=== PATIENT | male | born 2000 | race Caucasian/White ===

== ENCOUNTER 2023-02-03 21:04 | Emergency (ER) | payer OTHER, SELFPAY ==
[2023-02-03 22:03] LABS: SARS-CoV-2 Antigen Rapid Res Negative (Negative)
--- NOTE | 2023-02-03 22:31 | RAD REPORT ---
EXAM DESCRIPTION: RAD - Chest Pa And Lat (2 Views) - 02/03/2023 10:13 pm CLINICAL HISTORY: Cough;Pain COMPARISON: No comparisons TECHNIQUE: PA and lateral views of the chest were obtained. FINDINGS: The lungs are clear. Heart size is normal and central vasculature is within normal limits. No pleural effusion or pneumothorax seen. No acute bony finding noted. IMPRESSION: No acute cardiopulmonary process.
--- NOTE | 2023-02-03 22:34 | EDPHYS ---
Physician Documentation [facility] Name: Edu Whyte Age: 22 yrs Sex: Male : 2000 Arrival Date: 02/03/2023 Time: 21:04 Bed 12 Private MD: ED Physician Scott Brewster HPI: 02/03 21:40 This 22 yrs old Male presents to ER via Ambulatory with complaints of Flu Symptoms, cp Chest Congestion, fatigue. 21:40 The patient or guardian reports cough, that is intermittent, with productive sputum. cp 21:40 Onset: The symptoms/episode began/occurred this past Thursday. Associated signs and cp symptoms: Pertinent positives: chest pain, with cough, sore throat, Pertinent negatives: diarrhea, vomiting. Severity of symptoms: in the emergency department the symptoms are unchanged despite home interventions. Historical: - Allergies: 21:15 PENICILLINS; pf1 - Home Meds: 21:15 None [Active]; pf1 - PMHx: 21:15 None; pf1 - PSHx: 21:15 None; pf1 - Immunization history:: Client reports receiving the 2nd dose of the Covid vaccine, Flu vaccine is not up to date. - Social history:: Smoking status: Patient denies any tobacco usage or history of. ROS: 21:45 Constitutional: Positive for body aches, Negative for fever, poor PO intake, cp 21:45 Cardiovascular: Positive for chest pain, with cough, Negative for palpitations, cp 21:45 Respiratory: Positive for cough, Negative for wheezing, 21:45 Eyes: Negative for injury, pain, redness, and discharge, cp 21:45 ENT: Positive for sore throat, Negative for drainage from ear(s), ear pain, difficulty cp swallowing, difficulty handling secretions, 21:45 Abdomen/GI: Negative for abdominal pain, vomiting, diarrhea, constipation, 21:45 Neuro: Negative for altered mental status, dizziness, headache, weakness, 21:45 All other systems are negative, Exam: 21:50 Constitutional: The patient appears in no acute distress, alert, awake, non-toxic, well cp developed, well nourished, 21:50 Head/Face: Normocephalic, atraumatic. cp 21:50 Eyes: Periorbital structures: appear normal, Conjunctiva: normal, no exudate, no injection, Lids and lashes: appear normal, bilaterally, 21:50 ENT: External ear(s): are unremarkable, Ear canal(s): are normal, clear, TM's: bulging, is not appreciated, bilaterally, dullness, bilaterally, erythema, is not appreciated, bilaterally, Nose: is normal, Mouth: Lips: moist, Oral mucosa: moist, Posterior pharynx: Airway: no evidence of obstruction, patent, Tonsils: with erythema, no exudate, erythema, that is mild, exudate, is not appreciated, 21:50 Neck: ROM/movement: is normal, is supple, without pain, no range of motions limitations, no meningismus, no nuchal rigidity, 21:50 Chest/axilla: Inspection: normal, 21:50 Cardiovascular: Rate: normal, Rhythm: regular, 21:50 Respiratory: the patient does not display signs of respiratory distress, Respirations: normal, no use of accessory muscles, no retractions, labored breathing, is not present, Breath sounds: decreased breath sounds, are not appreciated, stridor, is not appreciated, + upper airway congestion. wheezing: is not appreciated, 21:50 Abdomen/GI: Inspection: abdomen appears normal, Palpation: abdomen is soft and non-tender, in all quadrants, 21:50 Back: pain, is absent, ROM is normal, 21:50 Skin: no rash present. Vital Signs: 21:13 BP 146 / 67; Pulse 74; Resp 16; Temp 98.1; Pulse Ox 100% ; Weight 83.91 kg; Height 6 pf1 ft. 0 in. ; Pain 7/10; 22:39 BP 133 / 68; Pulse 78; Resp 16; Temp 98; Pulse Ox 99% on R/A; pf1 21:13 Body Mass Index 25.09 (83.91 kg, 182.88 cm) pf1 21:13 Pain Scale: Adult pf1 MDM: 21:19 Patient medically screened. cp 22:31 Data reviewed: vital signs, nurses notes, lab test result(s), radiologic studies, plain cp films. 22:31 Differential diagnosis: bronchitis, flu, URI, pneumonia, strep throat. Counseling: I cp had a detailed discussion with the patient and/or guardian regarding the historical points, exam findings, and any diagnostic results supporting the discharge/admit diagnosis, lab results, to return to the emergency department if symptoms worsen or persist or if there are any questions or concerns that arise at home. 02/03 21:34 Order name: Strep 02/03 22:21 Interpretation: Reviewed. 02/03 21:34 Order name: Influenza Screen (a \T\ B); Complete Time: 22:20 02/03 22:21 Interpretation: Reviewed. 02/03 21:34 Order name: SARS-COV-2 Antigen Rapid; Complete Time: 22:20 02/03 22:21 Interpretation: Reviewed. 02/03 22:36 Order name: Throat Culture EDOH 02/03 21:34 Order name: XRAY Chest Pa And Lat (2 Views); Complete Time: 22:34 02/03 22:34 Interpretation: Report reviewed. cp Administered Medications: No medications were administered Disposition Summary: 02/03/23 22:32 Discharge Ordered Notes: Location: Home cp Problem: new cp Symptoms: have improved cp Condition: Stable cp Diagnosis - Acute pharyngitis, unspecified cp - Cough cp Followup: cp - With: Private Physician - When: 2 - 3 days - Reason: Worsening of condition Discharge Instructions: - Discharge Summary Sheet cp - Sore Throat cp - Cough, Adult cp - Form - Excuse from Work, School, or Physical Activity cp Forms: - Medication Reconciliation Form cp - Thank You Letter cp - Antibiotic Education cp - Prescription Opioid Use cp - Patient Portal Instructions cp - Leadership Thank You Letter cp Prescriptions: - Bromfed DM 2-30-10 mg/5 mL Oral syrup - administer 10 milliliter ORAL route every 6 hours as needed for cold symptoms; cp 180 milliliter; Refills: 0, Product Selection Permitted Addendum: 02/05/2023 04:04 Co-signature as Attending Physician, Scott Brewster MD I agree with the assessment s p4 and plan of care. I reviewed the patient's care provided by the Advanced Practice Provider and agree with the diagnosis and treatment plan. Signatures: Dispatcher [employer] EDOH Mata Marshall PA PA cp Ada Valentin, RN RN pf1 Scott Brewster MD MD sp4 Corrections: (The following items were deleted from the chart) 02/03 21:16 21:15 Allergies: No Known Allergies; pf1 pf1
--- NOTE | 2023-02-03 22:34 | ER ---
Nurse's Notes [facility] Name: Edu Whyte Age: 22 yrs Sex: Male : 2000 Arrival Date: 02/03/2023 Time: 21:04 Bed 12 Private MD: Diagnosis: Acute pharyngitis, unspecified;Cough Presentation: 02/03 21:13 Chief complaint: Patient states: Having body aches, chest congestion, cough and fatigue pf1 since last Thursday. Now when I cough really bad my chest hurts. Coronavirus screen: Vaccine status: Patient reports receiving the 2nd dose of the covid vaccine. [place] Client denies travel out of the [place] in the last 14 days. congestion, cough unrelated to allergies, fatigue, muscle pain, sore throat, Client presents with at least one sign or symptom that may indicate coronavirus-19. Ebola Screen: Patient negative for fever greater than or equal to 101.5 degrees Fahrenheit, and additional compatible Ebola Virus Disease symptoms Patient denies exposure to infectious person. Patient denies travel to an Ebola-affected area in the 21 days before illness onset. No symptoms or risks identified at this time. Initial Sepsis Screen: Does the patient meet any 2 criteria? No. Patient's initial sepsis screen is negative. Does the patient have a suspected source of infection? No. Patient's initial sepsis screen is negative. Risk Assessment: Do you want to hurt yourself or someone else? Patient reports no desire to harm self or others. Onset of symptoms was January 30, 2023. 21:13 Method Of Arrival: Ambulatory pf1 21:13 Acuity: TERENCE 4 pf1 Triage Assessment: 21:15 General: Appears in no apparent distress. comfortable, ill, Behavior is calm, pf1 cooperative, appropriate for age. Pain: Complains of pain in Throat and chest Pain does not radiate. Pain currently is 7 out of 10 on a pain scale. Quality of pain is described as pressure, stinging, Pain began 2-3 days ago. Is intermittent, Aggravated by coughing. EENT: Reports pain when swallowing. Neuro: Level of Consciousness is awake, alert, obeys commands, Oriented to person, place, time, situation, Appropriate for age [place] are. Cardiovascular: Chest pain is described as mild, is aggravated by coughing. Respiratory: Reports cough that is Airway is patent Respiratory effort is even, unlabored, Respiratory pattern is regular, symmetrical, the patient has mild shortness of breath. GI: No deficits noted. No signs and/or symptoms were reported involving the gastrointestinal system. : No deficits noted. No signs and/or symptoms were reported regarding the genitourinary system. Derm: No deficits noted. No signs and/or symptoms reported regarding the dermatologic system. Musculoskeletal: Reports body aches. Historical: - Allergies: 21:15 PENICILLINS; pf1 - Home Meds: 21:15 None [Active]; pf1 - PMHx: 21:15 None; pf1 - PSHx: 21:15 None; pf1 - Immunization history:: Client reports receiving the 2nd dose of the Covid vaccine, Flu vaccine is not up to date. - Social history:: Smoking status: Patient denies any tobacco usage or history of. Screenin:18 [facility] ED Fall Risk Assessment (Adult) History of falling in the last 3 months, pf1 including since admission No falls in past 3 months (0 pts) Confusion or Disorientation No (0 pts) Intoxicated or Sedated No (0 pts) Impaired Gait No (0 pts) Mobility Assist Device Used No (0 pt) Altered Elimination No (0 pt) Score/Fall Risk Level 0 - 2 = Low Risk Oriented to surroundings, Maintained a safe environment, Educated pt \T\ family on fall prevention, incl call for assistance when getting out of bed. Abuse screen: Denies threats or abuse. Nutritional screening: No deficits noted. Tuberculosis screening: No symptoms or risk factors identified. Assessment: 21:45 Reassessment: Patient appears in no apparent distress at this time. Patient and/or pf1 family updated on plan of care and expected duration. Pain level reassessed. Patient is alert, oriented x 3, equal unlabored respirations, skin warm/dry/pink. 22:30 Reassessment: Patient appears in no apparent distress at this time. Patient and/or pf1 family updated on plan of care and expected duration. Pain level reassessed. Patient is alert, oriented x 3, equal unlabored respirations, skin warm/dry/pink. Vital Signs: 21:13 BP 146 / 67; Pulse 74; Resp 16; Temp 98.1; Pulse Ox 100% ; Weight 83.91 kg; Height 6 pf1 ft. 0 in. ; Pain 7/10; 22:39 BP 133 / 68; Pulse 78; Resp 16; Temp 98; Pulse Ox 99% on R/A; pf1 21:13 Body Mass Index 25.09 (83.91 kg, 182.88 cm) pf1 21:13 Pain Scale: Adult pf1 ED Course: 21:09 Patient arrived in ED. gm2 21:13 Mata Marshall PA is PHCP. cp 21:13 Scott Brewster MD is Attending Physician. cp 21:15 Triage completed. pf1 21:15 Arm band placed on right wrist. pf1 21:44 SARS-COV-2 Antigen Rapid Sent. pf1 21:44 Influenza Screen (a \T\ B) Sent. pf1 21:44 Strep Sent. pf1 21:45 Patient has correct armband on for positive identification. Bed in low position. Call pf1 light in reach. 22:15 XRAY Chest Pa And Lat (2 Views) In Process Unspecified. EDMS 22:40 Provided Education on: prescription. pf1 22:40 No provider procedures requiring assistance completed. Patient did not have IV access pf1 during this emergency room visit. Administered Medications: No medications were administered Medication: 21:18 VIS not applicable for this client. pf1 Outcome: 22:32 Discharge ordered by MD. cp 22:39 Discharged to home ambulatory, pf1 22:39 Condition: improved 22:39 Discharge instructions given to patient, Instructed on discharge instructions, follow up and referral plans. Demonstrated understanding of instructions, follow-up care, medications, Prescriptions given X 1, 22:40 Patient left the ED. pf1 Signatures: Dispatcher [employer] EDPA Mata Marshall PA PA cp Ada Valentin, RN RN pf1 Jackie Rios gm2 Corrections: (The following items were deleted from the chart) 21:16 21:15 Allergies: No Known Allergies; pf1 pf1
[2023-02-03 22:59] VITALS: BP 133/68; TEMP 98; O2SAT 99
== END 2023-02-03 22:40 | disposition home or self-care (01) ==
LOC: ER 21:04
DX: J02.9 Acute pharyngitis, unspecified (principal); R05.9 Cough, unspecified; Z11.52 Encounter for screening for COVID-19; Z88.0 Allergy status to penicillin
CPT/HCPCS: 36415; 71046; 87070; 87081; 87804; 87811; 99283

== ENCOUNTER → 2023-04-27 | Emergency (ER) | payer SELFPAY ==
[~2023-04-27] MED LIST: IBUPROFEN 200 MG TAB PO ONE
--- NOTE | 2023-04-27 10:59 | ER ---
Nurse's Notes [facility] Name: Edu Whyte Age: 22 yrs Sex: Male : 2000 Arrival Date: 04/27/2023 Time: 10:10 Bed 15 Private MD: Diagnosis: Strain of muscle and tendon of front wall of thorax;Strain of muscle and tendon of back wall of thorax;Unspecified symptoms and signs involving the musculoskeletal system Presentation: 04/27 10:22 Chief complaint: Patient states: reports right side pain that radiates to arm and cp4 increases with movement. Coronavirus screen: Vaccine status: Patient reports receiving the 2nd dose of the covid vaccine. Client denies travel out of the [place] in the last 14 days. At this time, the client does not indicate any symptoms associated with coronavirus-19. Ebola Screen: Patient negative for fever greater than or equal to 101.5 degrees Fahrenheit, and additional compatible Ebola Virus Disease symptoms Patient denies exposure to infectious person. Patient denies travel to an Ebola-affected area in the 21 days before illness onset. No symptoms or risks identified at this time. Initial Sepsis Screen: Does the patient meet any 2 criteria? No. Patient's initial sepsis screen is negative. Does the patient have a suspected source of infection? No. Patient's initial sepsis screen is negative. Risk Assessment: Do you want to hurt yourself or someone else? Patient reports no desire to harm self or others. Onset of symptoms was April 27, 2023. 10:22 Method Of Arrival: Ambulatory cp4 10:22 Acuity: TERENCE 4 cp4 Triage Assessment: 10:24 General: Appears in no apparent distress. Behavior is calm, cooperative, appropriate cp4 for age. Pain: Complains of pain in right lateral anterior chest and right lateral posterior chest. Cardiovascular: No deficits noted. Historical: - Allergies: 10:24 PENICILLINS; cp4 - PMHx: 10:24 Asthma; cp4 - Immunization history:: Adult Immunizations up to date. - Social history:: Smoking status: Patient denies any tobacco usage or history of. Screenin:26 [facility] ED Fall Risk Assessment (Adult) History of falling in the last 3 months, cp4 including since admission No falls in past 3 months (0 pts) Confusion or Disorientation No (0 pts) Intoxicated or Sedated No (0 pts) Impaired Gait No (0 pts) Mobility Assist Device Used No (0 pt) Altered Elimination No (0 pt) Score/Fall Risk Level 0 - 2 = Low Risk Oriented to surroundings, Maintained a safe environment, Educated pt \T\ family on fall prevention, incl call for assistance when getting out of bed, Assessed \T\ reinforced patient's understanding of fall precautions, Provided non-skid footwear, Hourly rounding (assess needs \T\ fall precautionary measures) done. Abuse screen: Denies threats or abuse. Nutritional screening: No deficits noted. Tuberculosis screening: No symptoms or risk factors identified. Assessment: 10:26 Pain: Pain does not radiate. Pain radiates to right arm Pain began gradually. cp4 Vital Signs: 10:22 BP 125 / 93; Pulse 83; Resp 18; Temp 98; Pulse Ox 100% ; Weight 79.38 kg; Height 6 ft. cp4 0 in. ; 10:22 Body Mass Index 23.73 (79.38 kg, 182.88 cm) cp4 ED Course: 10:12 Patient arrived in ED. rg4 10:12 Mata Chavarria MD is Attending Physician. elliot 10:22 Effie Abrams is Primary Nurse. cp4 10:24 Triage completed. cp4 10:24 Arm band placed on right wrist. Patient placed in waiting room. cp4 10:26 Bed in low position. Call light in reach. Side rails up X 1. Client placed on cp4 continuous cardiac and pulse oximetry monitoring. NIBP monitoring applied. 10:26 No provider procedures requiring assistance completed. Patient maintains SpO2 cp4 saturation greater than 95% on room air. 10:41 Chest Pa And Lat (2 Views) XRAY In Process Unspecified. EDMS 11:31 Provided Education on: muscle strain. cp4 11:31 Patient did not have IV access during this emergency room visit. cp4 Administered Medications: 10:44 Drug: Ibuprofen PO 600 mg PO once Route: PO; cp4 11:30 Follow up: Response: No adverse reaction cp4 Medication: 10:26 VIS not applicable for this client. cp4 Outcome: 10:59 Discharge ordered by . elliot 11:31 Discharged to home ambulatory, cp4 11:31 Condition: stable 11:31 Discharge instructions given to patient, Instructed on discharge instructions, follow up and referral plans. medication usage, Demonstrated understanding of instructions, follow-up care, medications, Prescriptions given X 2, 11:32 Patient left the ED. cp4 Signatures: Dispatcher [employer] EDMata Fabian MD MD cha Garcia, Rubi rg4 Effie Abrams cp4
--- NOTE | 2023-04-27 10:59 | RAD REPORT ---
EXAM DESCRIPTION: Jose Duenas And Marvin (2 Views)04/27/2023 10:40 am CLINICAL HISTORY: Cough COMPARISON: January 2023 FINDINGS: The lungs appear clear of acute infiltrate. The heart is normal size IMPRESSION: No acute abnormalities displayed
--- NOTE | 2023-04-27 10:59 | EDPHYS ---
Physician Documentation [facility] Name: Edu Whyte Age: 22 yrs Sex: Male : 2000 Arrival Date: 04/27/2023 Time: 10:10 Bed 15 Private MD: PHYLLIS Physician Mata Chavarria HPI: 04/27 10:24 This 22 yrs old Male presents to ER via Unassigned with complaints of Arm elliot Pain, Chest Pain. 10:24 The patient or guardian complains of pain. The complaints affect the anterior aspect of elliot right shoulder and posterior aspect of right shoulder. Context: The problem was sustained at an unknown location, resulted from lifting or pulling, a heavy object. Onset: The symptoms/episode began/occurred yesterday. Treatment prior to arrival includes: no previous treatment. Modifying factors: The symptoms are alleviated by nothing. the symptoms are aggravated by nothing. Associated signs and symptoms: The patient has no apparent associated signs or symptoms. Historical: - Allergies: 10:24 PENICILLINS; cp4 - PMHx: 10:24 Asthma; cp4 - Immunization history:: Adult Immunizations up to date. - Social history:: Smoking status: Patient denies any tobacco usage or history of. ROS: 10:26 Constitutional: Negative for fever, chills, and weight loss, Eyes: Negative for injury, elliot pain, redness, and discharge, ENT: Negative for injury, pain, and discharge, Neck: Negative for injury, pain, and swelling, Cardiovascular: Negative for chest pain, palpitations, and edema, Respiratory: Negative for shortness of breath, cough, wheezing, and pleuritic chest pain, Abdomen/GI: Negative for abdominal pain, nausea, vomiting, diarrhea, and constipation, Back: Negative for injury and pain, : Negative for injury, bleeding, discharge, and swelling, MS/Extremity: Negative for injury and deformity, Skin: Negative for injury, rash, and discoloration, Neuro: Negative for headache, weakness, numbness, tingling, and seizure, Psych: Negative for depression, anxiety, suicide ideation, homicidal ideation, and hallucinations, Allergy/Immunology: Negative for hives, rash, and allergies, Endocrine: Negative for neck swelling, polydipsia, polyuria, polyphagia, and marked weight changes, Hematologic/Lymphatic: Negative for swollen nodes, abnormal bleeding, and unusual bruising, Exam: 10:26 Constitutional: This is a well developed, well nourished patient who is awake, alert, elliot and in no acute distress. Head/Face: Normocephalic, atraumatic. Eyes: Pupils equal round and reactive to light, extra-ocular motions intact. Lids and lashes normal. Conjunctiva and sclera are non-icteric and not injected. Cornea within normal limits. Periorbital areas with no swelling, redness, or edema. ENT: Nares patent. No nasal discharge, no septal abnormalities noted. Tympanic membranes are normal and external auditory canals are clear. Oropharynx with no redness, swelling, or masses, exudates, or evidence of obstruction, uvula midline. Mucous membranes moist. Neck: Trachea midline, no thyromegaly or masses palpated, and no cervical lymphadenopathy. Supple, full range of motion without nuchal rigidity, or vertebral point tenderness. No Meningismus. Cardiovascular: Regular rate and rhythm with a normal S1 and S2. No gallops, murmurs, or rubs. Normal PMI, no JVD. No pulse deficits. Respiratory: Lungs have equal breath sounds bilaterally, clear to auscultation and percussion. No rales, rhonchi or wheezes noted. No increased work of breathing, no retractions or nasal flaring. Abdomen/GI: Soft, non-tender, with normal bowel sounds. No distension or tympany. No guarding or rebound. No evidence of tenderness throughout. Back: No spinal tenderness. No costovertebral tenderness. Full range of motion. Male : Normal genitalia with no discharge or lesions. Skin: Warm, dry with normal turgor. Normal color with no rashes, no lesions, and no evidence of cellulitis. MS/ Extremity: Pulses equal, no cyanosis. Neurovascular intact. Full, normal range of motion. Neuro: Awake and alert, GCS 15, oriented to person, place, time, and situation. Cranial nerves II-XII grossly intact. Motor strength 5/5 in all extremities. Sensory grossly intact. Cerebellar exam normal. Normal gait. Psych: Awake, alert, with orientation to person, place and time. Behavior, mood, and affect are within normal limits. 10:26 Chest/axilla: Inspection: normal, no acute changes, Palpation: crepitus, is not appreciated, tenderness, that is mild, of the right clavicle, anterior aspect of right upper chest, right lateral anterior chest and right lateral posterior chest, Axilla: are normal, Lymph nodes: lymphadenopathy is not appreciated, Vital Signs: 10:22 BP 125 / 93; Pulse 83; Resp 18; Temp 98; Pulse Ox 100% ; Weight 79.38 kg; Height 6 ft. cp4 0 in. ; 10:22 Body Mass Index 23.73 (79.38 kg, 182.88 cm) cp4 MDM: 10:13 Patient medically screened. elliot 10:27 Differential diagnosis: closed fracture, contusion, abrasion, tendonitis, Blunt Chest elliot Trauma Chest Wall Contusion Chest Wall Injury. Data reviewed: vital signs, nurses notes, radiologic studies, plain films. Consideration of Admission/Observation Escalation of care including admission/observation considered. I considered the following discharge prescriptions or medication management in the emergency department Medications were administered in the Emergency Department. See MAR. Independent interpretation of the following test(s) in the Emergency Department X-Ray: My interpretation is cxr , nad. Test considered but Not performed: Labs: no labs. Historians other than the Patient: pt well informed. Care significantly affected by the following chronic conditions: asthma, right clavicular fx. 04/27 10:21 Order name: Chest Pa And Lat (2 Views) XRAY elliot Administered Medications: 10:44 Drug: Ibuprofen PO 600 mg PO once Route: PO; cp4 11:30 Follow up: Response: No adverse reaction cp4 Disposition Summary: 04/27/23 10:59 Discharge Ordered Notes: Location: Home elliot Problem: new elliot Symptoms: have improved elliot Condition: Stable elliot Diagnosis - Strain of muscle and tendon of front wall of thorax elliot - Strain of muscle and tendon of back wall of thorax elliot - Unspecified symptoms and signs involving the musculoskeletal system elliot Followup: elliot - With: Private Physician - When: 2 - 3 days - Reason: Recheck today's complaints, Continuance of care, Re-evaluation by your physician Discharge Instructions: - Discharge Summary Sheet elliot - Chest Wall Pain elliot - Musculoskeletal Pain elliot - Muscle Pain, Adult elliot - Chest Wall Pain, [id number] elliot Forms: - Medication Reconciliation Form elliot - Thank You Letter elliot - Antibiotic Education elliot - Prescription Opioid Use elliot - Patient Portal Instructions elliot - Leadership Thank You Letter elliot - Work release form cp4 Prescriptions: - Ibuprofen 600 mg Oral Tablet - take 1 tablet ORAL route every 6 hours As needed take with food; 30 tablet; [facility] Refills: 0, Product Selection Permitted - Cyclobenzaprine 5 mg Oral Tablet - take 1 tablet ORAL route 3 times per day As needed; 15 tablet; Refills: 0, [facility] Product Selection Permitted Signatures: Dispatcher [employer] Mata Staton, Effie Disla MD, cha Logan
[2023-04-27 21:24] VITALS: BP 125/93; TEMP 98; O2SAT 100
== END ==
LOC: ER 10:10
DX: S29.011A Strain of muscle and tendon of front wall of thorax, initial encounter (principal); S29.012A Strain of muscle and tendon of back wall of thorax, initial encounter
CPT/HCPCS: 71046

== ENCOUNTER → 2023-05-11 | Emergency (ER) | payer SELFPAY ==
[~2023-05-11] MED LIST changes: -IBUPROFEN 200 MG TAB PO ONE; +dexAMETHasone 10 MG/ML VIAL ONE
--- OUTSIDE RECORDS SUMMARY | 2023-05-11 21:39 | XMS REPORT | Continuity of Care Document ---
Author Name Unknown Address [address] [place] [address] [facility] thconnect Address [address] [place] [address] Care Team Providers Care Leaf Tier Name Role Phone Rubén Grimm Primary Care Physician [phone] Joey ARCEO Attending Clinician Unavailable Joey Veliz Attending Clinician [phone] Allergies, Adverse Reactions, Alerts Allergy Name Allergy Type Status Severity Reaction(s) Onset Date Inactive Date Treating Clinician Comments Source NO KNOWN ALLERGIE S Drug Class Active [facility] Social History Social Habit Start Date Stop Date Quantity Comments Source History of tobacco use Passive smoker [facility] Exposure to SARS-CoV-2 (event) 2022-06-24 00:00:00 2022-07-04 15:03:00 Not sure [facility] Alcohol intake 2022-07-04 00:00:00 2022-07-04 00:00:00 [facility] Sex Assigned At 2000 00:00:00 2000 00[birth year]00 [facility] Smoking Status Start Date Stop Date Source Never smoked tobacco [facility] Medications Ordered Medication Name Filled Medication Name Start Date Stop Date Current Medication? Ordering Clinician Indication Dosage Frequency Signature (SIG) Comments Components Source ondansetron (ZOFRAN-ODT ) disintegrat ing tablet 4 mg 07-04 21:45: 00 07-04 20:46 :00 No 4mg 4 mg, Oral, ONCE, 1 dose, On Thu07/04/22 at 1645, Routine [facility] ondansetron 4 mg disintegrat ing tablet 07-04 00:00: 00 Yes [id number] 4mg Take 1 tablet by mouth every 8 (eight) hours as needed for Nausea and Vomiting (N/V). [facility] NAPROXEN (NAPROSYN ORAL) 08-25 08:23: 49 Yes Take by mouth. [facility] CYCLOBENZAP RINE HCL (FLEXERIL ORAL) 08-25 08:23: 49 Yes Take by mouth. [facility] Vital Signs Vital Name Observation Time Observation Value Comments S our Systolic blood pressure 2022-07-04 20:05:00 150 mm[Hg] [facility] Diastolic blood pressure 2022-07-04 20:05:00 86 mm[Hg] [facility] Heart rate 2022-07-04 20:05:00 91 /min [facility] Body temperature 2022-07-04 20:05:00 37.11 Josseline [facility] Respiratory rate 2022-07-04 20:05:00 16 /min [facility] Body weight 2022-07-04 20:05:00 81.647 kg [facility] Oxygen saturation in Arterial blood by Pulse oximetry 2022-07-04 20:05:00 100 /min [facility] Procedures Procedure Date / Time Performed Performing Clinicia n Source POCT GLUCOSE(AGE >30DAYS) 2022-07-04 20:44:00 Joey Arceo [facility] POCT GLUCOSE (AUTOMATED) 2022-07-04 20:42:00 Joey Arceo [facility] Encounters Start Date/Time End Date/Time Encounter Type Admission Type Attending Clinicians Care Facility Care Department Encounter ID Source 2022-07-04 15:05:00 2022-07-04 15:59:00 Emergency X Joey ARCEO ERT [id number] [facility] 2022-07-04 15:05:00 2022-07-04 15:59:00 Emergency Joey Arceo [facility] [id number] [facility] Results Test Description Test Time Test Comments Results Result Co mments Source [facility]2022-07-04 20:42:47* Test Item Value Reference Range Interpretation Comme nts POCT GLU (test code = [id number]) 89 mg/dL 70-110 Lab Interpretation (test cod e = [id number]) Normal [facility]
--- NOTE | 2023-05-11 22:02 | EDPHYS ---
Physician Documentation [facility] Name: Edu Whyte Age: 22 yrs Sex: Male : 2000 Arrival Date: 05/11/2023 Time: 21:37 Bed DX4 Private MD: ED Physician Scott Brewster HPI: 05/11 22:03 This 22 yrs old Male presents to ER via Ambulatory with complaints of Sore Throat. sb4 22:03 patient reports sore throat and raspy voice for about 3 weeks. he was sick with some sb4 sort of URI originally. has been trying OTC remedies without much relief. no other associated signs and symptoms. Historical: - Allergies: 21:51 PENICILLINS; km8 - Home Meds: 21:51 None [Active]; km8 - PMHx: 21:51 Asthma; km8 - PSHx: 21:51 None; km8 - Immunization history:: Client reports receiving the 2nd dose of the Covid vaccine, Flu vaccine is not up to date. - Social history:: Smoking status: Patient denies any tobacco usage or history of. Patient uses alcohol, occasionally. Patient/guardian denies using street drugs. ROS: 22:03 Constitutional: Negative for fever, chills, and weight loss, sb4 22:03 ENT: Positive for hoarseness, sore throat, 22:03 All other systems are negative, Exam: 22:03 Constitutional: This is a well developed, well nourished patient who is awake, alert, sb4 and in no acute distress. Head/Face: Normocephalic, atraumatic. Eyes: Extra-ocular motions intact. Periorbital areas with no swelling, redness, or edema. Skin: Warm, dry with normal turgor. Normal color with no rashes, no lesions, and no evidence of cellulitis. MS/ Extremity: Pulses equal, no cyanosis. Neurovascular intact. Full, normal range of motion. 22:03 ENT: Posterior pharynx: Airway: normal, no evidence of obstruction, patent, Tonsils: are normal in appearance, Voice: is hoarse, Vital Signs: 21:50 BP 148 / 86; Pulse 86; Resp 16; Temp 98.4(TE); Pulse Ox 100% on R/A; Weight 79.38 kg km8 (R); Height 5 ft. 11 in. (R); Pain 8/10; 21:50 Body Mass Index 24.41 (79.38 kg, 180.34 cm) [facility] 21:50 Pain Scale: Adult km8 MDM: 22:00 Patient medically screened. sb4 22:03 Differential Diagnosis:. Data reviewed: vital signs, nurses notes, and as a result, I sb4 will discharge patient. Test considered but Not performed: Labs: strep/throat swab not indicated, clinical diagnosis. Administered Medications: 22:25 Drug: Dexamethasone IM 10 mg IM once Route: IM; Site: left deltoid; me1 22:25 Follow up: Response: No adverse reaction me1 Disposition: 05/12 05:24 Co-signature as Attending Physician, Scott Brewster MD I agree with the assessment sp4 and plan of care. I reviewed the patient's care provided by the Advanced Practice Provider and agree with the diagnosis and treatment plan. Disposition Summary: 05/11/23 22:01 Discharge Ordered Notes: Location: Home sb4 Problem: an ongoing problem sb4 Symptoms: are unchanged sb4 Condition: Stable sb4 Diagnosis - Acute laryngitis sb4 Followup: sb4 - With: Jojo Sarabia MD - When: As needed - Reason: Further diagnostic work-up, Recheck today's complaints, Re-evaluation by your physician Discharge Instructions: - Discharge Summary Sheet sb4 - Laryngitis sb4 Forms: - Thank You Letter sb4 - Patient Portal Instructions sb4 - Leadership Thank You Letter sb4 Prescriptions: - Medrol (Morales) 4 mg Oral Tablets, Dose Pack - take 1 tablet ORAL route as directed - follow package instructions; 1 packet; sb4 Refills: 0, Product Selection Permitted Signatures: Renea Leno PA-C PA-C sb4 Scott Brewster MD MD sp4 Nicole Garcia, RN RN me1 Danya Porras RN RN km8
--- NOTE | 2023-05-11 22:02 | ER ---
Nurse's Notes [facility] Name: Edu Whyte Age: 22 yrs Sex: Male : 2000 Arrival Date: 05/11/2023 Time: 21:37 Bed DX4 Private MD: Diagnosis: Acute laryngitis Presentation: 05/11 21:50 Chief complaint: Patient states: sore throat and raspy voice for 3 weeks; denies fever. km8 Coronavirus screen: Client denies travel out of the [place] in the last 14 days. Ebola Screen: No symptoms or risks identified at this time. Initial Sepsis Screen: Does the patient meet any 2 criteria? No. Patient's initial sepsis screen is negative. Does the patient have a suspected source of infection? No. Patient's initial sepsis screen is negative. Risk Assessment: Do you want to hurt yourself or someone else? Patient reports no desire to harm self or others. Onset of symptoms was April 20, 2023. 21:50 Method Of Arrival: Ambulatory km 21:50 Acuity: TERENCE 4 km8 Triage Assessment: 21:51 General: Appears in no apparent distress. comfortable, Behavior is calm, cooperative, km8 appropriate for age. Pain: Complains of pain in throat Pain currently is 8 out of 10 on a pain scale. Quality of pain is described as sore. EENT: Reports sore throat. Neuro: Level of Consciousness is awake, alert, obeys commands, Oriented to person, place, time, situation. Cardiovascular: Denies chest pain, shortness of breath, Capillary refill < 3 seconds Patient's skin is warm and dry. Respiratory: Airway is patent Respiratory effort is even, unlabored, Respiratory pattern is regular, symmetrical, Breath sounds are clear bilaterally. GI: No signs and/or symptoms were reported involving the gastrointestinal system. : No signs and/or symptoms were reported regarding the genitourinary system. Derm: Skin is intact, is healthy with good turgor, Skin is dry, Skin is pink, warm \T\ dry. normal, Skin temperature is warm. Musculoskeletal: No signs and/or symptoms reported regarding the musculoskeletal system. Circulation, motion, and sensation intact. Range of motion: intact in all extremities. Historical: - Allergies: 21:51 PENICILLINS; km8 - Home Meds: 21:51 None [Active]; km8 - PMHx: 21:51 Asthma; km8 - PSHx: 21:51 None; km8 - Immunization history:: Client reports receiving the 2nd dose of the Covid vaccine, Flu vaccine is not up to date. - Social history:: Smoking status: Patient denies any tobacco usage or history of. Patient uses alcohol, occasionally. Patient/guardian denies using street drugs. Screenin:[address] [facility] ED Fall Risk Assessment (Adult) History of falling in the last 3 months, km8 including since admission No falls in past 3 months (0 pts) Confusion or Disorientation No (0 pts) Intoxicated or Sedated No (0 pts) Impaired Gait No (0 pts) Mobility Assist Device Used No (0 pt) Altered Elimination No (0 pt) Score/Fall Risk Level 0 - 2 = Low Risk Oriented to surroundings, Maintained a safe environment, Educated pt \T\ family on fall prevention, incl call for assistance when getting out of bed, Assessed \T\ reinforced patient's understanding of fall precautions. Abuse screen: Denies threats or abuse. Denies injuries from another. Nutritional screening: No deficits noted. Tuberculosis screening: No symptoms or risk factors identified. Assessment: 21:55 General: see triage notes/assessment. km8 Vital Signs: 21:50 BP 148 / 86; Pulse 86; Resp 16; Temp 98.4(TE); Pulse Ox 100% on R/A; Weight 79.38 kg km8 (R); Height 5 ft. 11 in. (R); Pain 8/10; 21:50 Body Mass Index 24.41 (79.38 kg, 180.34 cm) km8 21:50 Pain Scale: Adult km8 ED Course: 21:41 Patient arrived in ED. gm2 21:43 Renea Leon PA-C is PHCP. sb4 21:43 Scott Brewster MD is Attending Physician. sb4 21:51 Triage completed. km8 21:51 Arm band placed on right wrist. km8 21:55 Patient has correct armband on for positive identification. km8 21:55 No provider procedures requiring assistance completed. Patient maintains SpO2 km8 saturation greater than 95% on room air. 21:56 Provided Education on: d/c teaching. km8 21:56 Patient did not have IV access during this emergency room visit. km8 22:00 Jojo Sarabia MD is Referral Physician. sb4 22:18 Nicole Garcia, RN is Primary Nurse. me1 Administered Medications: 22:25 Drug: Dexamethasone IM 10 mg IM once Route: IM; Site: left deltoid; me1 22:25 Follow up: Response: No adverse reaction me1 Medication: 21:55 VIS not applicable for this client. km8 Outcome: 22:01 Discharge ordered by . sb4 22:25 Discharged to home ambulatory, me1 22:25 Condition: stable 22:25 Discharge instructions given to patient, Instructed on discharge instructions, follow up and referral plans. medication usage, Demonstrated understanding of instructions, follow-up care, medications, Prescriptions given X 1, :25 Patient left the ED. me1 Signatures: Renea Leon PAAriesC PA-C sb4 Nicole Garcia, RN RN pa1 Jackie Rios 2 Danya Porras RN RN km8
[2023-05-11 23:08] VITALS: BP 148/86; TEMP 98.4; O2SAT 100
== END ==
LOC: ER 21:37
DX: J02.9 Acute pharyngitis, unspecified (principal)
CPT/HCPCS: 96372; 99284; J1100

== ENCOUNTER → 2023-06-06 | Emergency (ER) | payer SELFPAY ==
--- OUTSIDE RECORDS SUMMARY | 2023-06-06 07:13 | XMS REPORT | Continuity of Care Document ---
Author Name Unknown Address [address] [place] [address] [facility] thconnect Address [address] [place] [address] Care Team Providers Care Client Technical Specialist Name Role Phone Rubén Grimm Primary Care Physician [phone] Joey ARCEO Attending Clinician Unavailable Joey Veliz Attending Clinician [phone] Allergies, Adverse Reactions, Alerts Allergy Name Allergy Type Status Severity Reaction(s) Onset Date Inactive Date Treating Clinician Comments Source NO KNOWN ALLERGIE S Drug Class Active [facility] [place] [place] Social History Social Habit Start Date Stop Date Quantity Comments Source History of tobacco use Passive smoker [facility] Exposure to SARS-CoV-2 (event) 2022-06-24 00:00:00 2022-07-04 15:03:00 Not sure [facility] Alcohol intake 2022-07-04 00:00:00 2022-07-04 00:00:00 [facility] Sex Assigned At 2000 00:00:00 2000 00:00:00 [facility] Smoking Status Start Date Stop Date Source Never smoked tobacco [facility] Medications Ordered Medication Name Filled Medication Name Start Date Stop Date Current Medication? Ordering Clinician Indication Dosage Frequency Signature (SIG) Comments Components Source ondansetron (ZOFRAN-ODT ) disintegrat ing tablet 4 mg 07-04 21:45: 00 07-04 20:46 :00 No 4mg 4 mg, Oral, ONCE, 1 dose, On Thu07/04/22 at 1645, Routine [facility] ondansetron 4 mg disintegrat ing tablet 07-04 00:00: 00 Yes [id number] 4mg Take 1 tablet by mouth every 8 (eight) hours as needed for Nausea and Vomiting (N/V). [facility] NAPROXEN (NAPROSYN ORAL) 08-25 08:23: 49 Yes Take by mouth. [facility] CYCLOBENZAP RINE HCL (FLEXERIL ORAL) 08-25 08:23: 49 Yes Take by mouth. [facility] Vital Signs Vital Name Observation Time Observation Value Comments S jennie Systolic blood pressure 2022-07-04 20:05:00 150 mm[Hg] [facility] Diastolic blood pressure 2022-07-04 20:05:00 86 mm[Hg] [facility] Heart rate 2022-07-04 20:05:00 91 /min [facility] Body temperature 2022-07-04 20:05:00 37.11 Josseline [facility] Respiratory rate 2022-07-04 20:05:00 16 /min [facility] Body weight 2022-07-04 20:05:00 81.647 kg [facility] Oxygen saturation in Arterial blood by Pulse oximetry 2022-07-04 20:05:00 100 /min [facility] Procedures Procedure Date / Time Performed Performing Clinicia n Source POCT GLUCOSE(AGE >30DAYS) 2022-07-04 20:44:00 Joey Arceo [facility] POCT GLUCOSE (AUTOMATED) 2022-07-04 20:42:00 Joey Arceo [facility] Encounters Start Date/Time End Date/Time Encounter Type Admission Type Attending Clinicians Care Facility Care Department Encounter ID Source 2022-07-04 15:05:00 2022-07-04 15:59:00 Emergency X Joey ARCEO ERT [id number] [facility] 2022-07-04 15:05:00 2022-07-04 15:59:00 Emergency Joey Arceo [facility] [id number] [facility] Results Test Description Test Time Test Comments Results Result Co mments Source [facility]2022-07-04 20:42:47* Test Item Value Reference Range Interpretation Comme nts POCT GLU (test code = [id number]) 89 mg/dL 70-110 Lab Interpretation (test cod e = [id number]) Normal [facility]
--- NOTE | 2023-06-06 08:54 | RAD REPORT ---
EXAM DESCRIPTION: RAD - Wrist Left 2 View - 06/06/2023 8:40 am CLINICAL HISTORY: PAIN Pain COMPARISON: No comparisons FINDINGS: No fracture or dislocation seen. No foreign body or other soft tissue abnormality. IMPRESSION: Negative examination.
--- NOTE | 2023-06-06 09:23 | EDPHYS ---
Physician Documentation [facility] Name: Edu Whyte Age: 22 yrs Sex: Male : 2000 Arrival Date: 06/06/2023 Time: 07:10 Bed 16 Private MD: ED Physician Gina Calles HPI: 06/05 08:27 This 22 yrs old Male presents to ER via Ambulatory with complaints of Wrist Injury. cp3 08:27 the patient is a 22 year old male who endorses that he fell on outstretched hand cp3 yesterday. the patient endorses that he is having left wrist pain. pain with rom. Historical: - Allergies: 07:31 PENICILLINS; hb - Home Meds: 07:31 None [Active]; hb - PMHx: 07:31 Asthma; hb - PSHx: 07:31 None; hb - Immunization history:: Adult Immunizations up to date. - Social history:: Smoking status: Patient denies any tobacco usage or history of. ROS: 08:27 Constitutional: Negative for fever, chills, and weight loss, cp3 08:27 MS/extremity: Negative for injury or acute deformity, decreased range of motion, pain, Exam: 08:27 Hand exam: cp3 08:27 Hand exam: Exam is positive for pain, tenderness, exam relates to left wrist. ROM: no acute changes, Circulation is intact in all extremities. sensation intact. Compartment Syndrome exam of affected extremity: is normal. Tendon exam: specific tendon testing normal through active and passive range of motion Joints: All joints appear normal with full range of motion. 08:27 Constitutional: This is a well developed, well nourished patient who is awake, alert, and in no acute distress. Skin: Warm, dry with normal turgor. Normal color with no rashes, no lesions, and no evidence of cellulitis. Vital Signs: 07:30 BP 131 / 76; Pulse 68; Resp 16; Temp 97.4(TE); Pulse Ox 100% on R/A; Weight 83.91 kg; hb Height 6 ft. 0 in. ; Pain 6/10; 08:35 BP 127 / 94; Pulse 75; Resp 16; Pulse Ox 100% ; bp 09:41 BP 121 / 85; Pulse 73; Resp 16; Temp 97.5; Pulse Ox 100% ; bp 07:30 Body Mass Index 25.09 (83.91 kg, 182.88 cm) hb 07:30 Pain Scale: Adult hb MDM: 07:16 Patient medically screened. cp3 08:27 Differential diagnosis: closed fracture, contusion. Data reviewed: vital signs, cp3 radiologic studies, plain films. Consideration of Admission/Observation Escalation of care including admission/observation considered. I considered the following discharge prescriptions or medication management in the emergency department Medications were administered in the Emergency Department. See MAY. 09:20 Data reviewed: radiologic studies, X-ray of the left wrist interpreted by me and is cp3 negative for fracture. Response to treatment: the patient's symptoms have markedly improved after treatment. 06/05 07:56 Order name: Wrist Left (2 View) XRAY; Complete Time: 09:19 cp3 Administered Medications: No medications were administered Disposition Summary: 06/06/23 09:22 Discharge Ordered Notes: Location: Home cp3 Condition: Stable cp3 Diagnosis - Pain in left wrist cp3 - Sprain of carpal joint of left wrist cp3 Followup: cp3 - With: Jacob Valenzuela MD - When: As needed - Reason: Continuance of care Discharge Instructions: - Discharge Summary Sheet cp3 - Wrist Pain, Adult cp3 Forms: - Medication Reconciliation Form cp3 - Thank You Letter cp3 - Antibiotic Education cp3 - Prescription Opioid Use cp3 - Patient Portal Instructions cp3 - Leadership Thank You Letter cp3 - Work release form eb Prescriptions: - toradol 10mg - take 1 tablet ORAL route 3 times per day As needed; 15 tablet; Refills: 0, cp3 Product Selection Permitted Signatures: Dispatcher [employer] Gina Cartwright MD MD cp3 Nikki Abdi, RN RN hb
--- NOTE | 2023-06-06 09:23 | ER ---
Nurse's Notes [facility] Name: Edu Whyte Age: 22 yrs Sex: Male : 2000 Arrival Date: 06/06/2023 Time: 07:10 Bed 16 Private MD: Diagnosis: Pain in left wrist;Sprain of carpal joint of left wrist Presentation: 06/05 07:30 Chief complaint: Left wrist pain after mechanical fall onto outstretched hand hb yesterday. Coronavirus screen: At this time, the client does not indicate any symptoms associated with coronavirus-19. Ebola Screen: No symptoms or risks identified at this time. Initial Sepsis Screen: Does the patient meet any 2 criteria? No. Patient's initial sepsis screen is negative. Does the patient have a suspected source of infection? No. Patient's initial sepsis screen is negative. Risk Assessment: Do you want to hurt yourself or someone else? Patient reports no desire to harm self or others. Onset of symptoms was June 05, 2023. Care prior to arrival: Medication(s) given: Motrin, 600 mg. 07:30 Method Of Arrival: Ambulatory hb 07:30 Acuity: TERENCE 4 hb Triage Assessment: 07:31 General: Appears in no apparent distress. Behavior is calm, cooperative. Pain: Pain hb currently is 6 out of 10 on a pain scale. Neuro: Level of Consciousness is awake, alert, obeys commands, Oriented to person, place, time, situation. Cardiovascular: Patient's skin is warm and dry. Respiratory: Respiratory effort is even, unlabored, Respiratory pattern is regular, symmetrical. Musculoskeletal: Reports left wrist pain. Historical: - Allergies: 07:31 PENICILLINS; hb - Home Meds: 07:31 None [Active]; hb - PMHx: 07:31 Asthma; hb - PSHx: 07:31 None; hb - Immunization history:: Adult Immunizations up to date. - Social history:: Smoking status: Patient denies any tobacco usage or history of. Screenin:[address] [facility] ED Fall Risk Assessment (Adult) History of falling in the last 3 months, bp including since admission No falls in past 3 months (0 pts). Abuse screen: Denies threats or abuse. Denies injuries from another. Nutritional screening: No deficits noted. Tuberculosis screening: No symptoms or risk factors identified. Assessment: 07:31 General: Appears in no apparent distress. uncomfortable, Behavior is calm, cooperative, bp appropriate for age. 08:37 Reassessment: No changes from previously documented assessment. Patient is alert, bp oriented x 3, equal unlabored respirations, skin warm/dry/pink. 09:41 Reassessment: DC HOME AMBULATORY. bp Vital Signs: 07:30 BP 131 / 76; Pulse 68; Resp 16; Temp 97.4(TE); Pulse Ox 100% on R/A; Weight 83.91 kg; hb Height 6 ft. 0 in. ; Pain 6/10; 08:35 BP 127 / 94; Pulse 75; Resp 16; Pulse Ox 100% ; bp 09:41 BP 121 / 85; Pulse 73; Resp 16; Temp 97.5; Pulse Ox 100% ; bp 07:30 Body Mass Index 25.09 (83.91 kg, 182.88 cm) hb 07:30 Pain Scale: Adult hb ED Course: 07:15 Patient arrived in ED. mg5 07:16 Gina Calles MD is Attending Physician. cp3 07:31 Triage completed. hb 07:31 Arm band placed on right wrist. hb 07:32 Client placed on continuous cardiac and pulse oximetry monitoring. NIBP monitoring hb applied. Pulse ox on. NIBP on. 07:35 Guy Peacock, RN is Primary Nurse. eb 08:30 Patient has correct armband on for positive identification. bp 08:42 Wrist Left (2 View) XRAY In Process Unspecified. EDMS 09:21 Jacob Valenzuela MD is Referral Physician. cp3 09:41 Provided Education on: N/A. bp 09:41 No provider procedures requiring assistance completed. Patient did not have IV access bp during this emergency room visit. Administered Medications: No medications were administered Medication: 09:41 VIS not applicable for this client. bp Outcome: 09:22 Discharge ordered by . cp3 09:41 Discharged to home ambulatory, bp 09:41 Condition: stable 09:41 Discharge instructions given to patient, Instructed on discharge instructions, follow up and referral plans. medication usage, Demonstrated understanding of instructions, follow-up care, medications, Prescriptions given X 1, 09:42 Patient left the ED. bp Signatures: Dispatcher [employer] EDPR Gina Calles MD MD cp3 Nikki Abdi, RN RN hb Guy Peacock RN RN bp Kayla Romano [place] mg5
[2023-06-06 10:10] VITALS: BP 121/85; TEMP 97.5; O2SAT 100
== END ==
LOC: ER 07:10
DX: S63.512A Sprain of carpal joint of left wrist, initial encounter (principal)
CPT/HCPCS: 99283

== ENCOUNTER 2023-08-22 18:54 | Emergency (ER) | payer SELFPAY ==
[2023-08-22] MEDS ORDERED: IBUPROFEN 400 MG TAB ONE (19:50)
--- NOTE | 2023-08-22 20:20 | RAD REPORT ---
EXAM DESCRIPTION: RAD - Tib Fib Left - 08/22/2023 8:12 pm CLINICAL HISTORY: couch dropped on leg;Pain COMPARISON: No comparisons FINDINGS/IMPRESSION: No acute fracture. No malalignment. No significant focal degenerative changes.
--- NOTE | 2023-08-22 20:31 | EDPHYS ---
Physician Documentation [facility] Name: Edu Whyte Age: 22 yrs Sex: Male : 2000 Arrival Date: 08/22/2023 Time: 18:54 Bed 14 Private MD: ED Physician Mata Chavarria HPI: 08/21 19:50 This 22 yrs old Male presents to ER via Ambulatory with complaints of Leg Injury, Ankle cp Injury. 19:50 The patient presents with an injury. The complaints affect the left lower leg. cp 19:50 Context: reports couch was dropped on lower leg. Onset: The symptoms/episode cp began/occurred today. Historical: - Allergies: 19:11 PENICILLINS; cm10 - PMHx: 19:11 Asthma; cm10 - Immunization history:: Adult Immunizations up to date. - Infectious Disease History:: Denies. - Social history:: Smoking status: Patient denies any tobacco usage or history of. ROS: 19:55 MS/extremity: Positive for abrasion, pain, tenderness, of the left lower leg, cp 19:55 Constitutional: Negative for body aches, chills, fever, poor PO intake, cp 19:55 Neck: Negative for pain with movement, pain at rest, 19:55 Cardiovascular: Negative for chest pain, 19:55 Respiratory: Negative for cough, shortness of breath, wheezing, 19:55 Abdomen/GI: Negative for abdominal pain, 19:55 Back: Negative for pain at rest, pain with movement, 19:55 All other systems are negative, Exam: 20:00 Constitutional: The patient appears in no acute distress, alert, awake, non-toxic, well cp developed, well nourished, 20:00 Head/Face: Normocephalic, atraumatic. cp 20:00 Neck: ROM/movement: is normal, is supple, without pain, no range of motions limitations, 20:00 Back: pain, is absent, ROM is normal, 20:00 Musculoskeletal/extremity: Extremities: noted in the left lower leg: no obvious deformity, no gross swelling, tenderness to palpation, several superficial abrasions noted, Vital Signs: 19:11 BP 147 / 79; Pulse 95; Resp 18; Temp 97.4; Pulse Ox 100% ; Weight 83.91 kg; Height 6 cm10 ft. 0 in. ; Pain 6/10; 20:37 BP 141 / 79; Pulse 89; Resp 18; Pulse Ox 99% ; cp4 19:11 Body Mass Index 25.09 (83.91 kg, 182.88 cm) cm10 19:11 Pain Scale: Adult cm10 MDM: 19:07 Patient medically screened. [facility] 20:00 Differential diagnosis: dislocation, closed fracture, contusion, abrasion. 20:30 Data reviewed: vital signs, nurses notes, radiologic studies, plain films. 20:30 I considered the following discharge prescriptions or medication management in the emergency department Medications were administered in the Emergency Department. See MAR. Independent interpretation of the following test(s) in the Emergency Department X-Ray: My interpretation is images of left lower leg negative for fracture. Counseling: I had a detailed discussion with the patient and/or guardian regarding the historical points, exam findings, and any diagnostic results supporting the discharge/admit diagnosis, radiology results. Response to treatment: the patient's symptoms have mildly improved after treatment, and as a result, I will discharge patient. 08/21 19:42 Order name: XRAY Tib Fib LEFT; Complete Time: 20:29 cp 08/21 20:29 Order name: Wound dressing; Complete Time: 20:32 cp Administered Medications: 19:53 Drug: Ibuprofen PO 800 mg PO once Route: PO; cp4 20:39 Follow up: Response: No adverse reaction; Pain is decreased cp4 Disposition Summary: 08/22/23 20:30 Discharge Ordered Notes: Location: Home cp Problem: new cp Symptoms: have improved cp Condition: Stable cp Diagnosis - Contusion of left lower leg cp - Abrasion of lower leg - left cp Followup: cp - With: Private Physician - When: 2 - 3 days - Reason: Worsening of condition Discharge Instructions: - Discharge Summary Sheet cp - Abrasion cp - Contusion cp Forms: - Medication Reconciliation Form cp - Antibiotic Education cp - Prescription Opioid Use cp - Patient Portal Instructions cp - Leadership Thank You Letter cp Prescriptions: - Ibuprofen 800 mg Oral Tablet - take 1 tablet ORAL route every 8 hours As needed take with food; 30 tablet; cp Refills: 0, Product Selection Permitted Signatures: Dispatcher [employer] EDMata Fabian MD MD cha Page, Corey, PA PA cp Martinez, Clarissa, RN RN cm10 Effie Abrams cp4 Corrections: (The following items were deleted from the chart) 19:42 19:42 Tib Fib Left+[id number] ordered. EDMS EDMS 08/22 20:31 08/21 19:35 MS/extremity: Positive for abrasion, pain, tenderness, of the left lower cp leg, cp
--- NOTE | 2023-08-22 20:31 | ER ---
Nurse's Notes [facility] Name: Edu Whyte Age: 22 yrs Sex: Male : 2000 Arrival Date: 08/22/2023 Time: 18:54 Bed 14 Private MD: Diagnosis: Contusion of left lower leg;Abrasion of lower leg-left Presentation: 08/21 19:11 Chief complaint: Patient states: Helping someone lift a couch and the couch fell on his cm10 left leg. Pt has pain to left ankle and left phelps. Coronavirus screen: Client denies travel out of the [place] in the last 14 days. At this time, the client does not indicate any symptoms associated with coronavirus-19. Ebola Screen: Patient denies travel to an Ebola-affected area in the 21 days before illness onset. No symptoms or risks identified at this time. Initial Sepsis Screen: Does the patient meet any 2 criteria? HR > 90 bpm. Does the patient have a suspected source of infection? No. Patient's initial sepsis screen is negative. Risk Assessment: Do you want to hurt yourself or someone else? Patient reports no desire to harm self or others. Onset of symptoms was August 22, 2023. 19:11 Method Of Arrival: Ambulatory cm10 19:11 Acuity: TERENCE 4 cm10 Triage Assessment: 19:11 General: Appears in no apparent distress. comfortable, Behavior is calm, cooperative. cm10 Pain: Complains of pain in left lateral ankle and left phelps. Neuro: No deficits noted. Level of Consciousness is awake, alert, obeys commands, Oriented to person, place, time, situation. 20:38 Injury Description: contusion. cp4 Historical: - Allergies: 19:11 PENICILLINS; cm10 - PMHx: 19:11 Asthma; cm10 - Immunization history:: Adult Immunizations up to date. - Infectious Disease History:: Denies. - Social history:: Smoking status: Patient denies any tobacco usage or history of. Screenin:54 [facility] ED Fall Risk Assessment (Adult) History of falling in the last 3 months, cp4 including since admission No falls in past 3 months (0 pts) Confusion or Disorientation No (0 pts) Intoxicated or Sedated No (0 pts) Impaired Gait No (0 pts) Mobility Assist Device Used No (0 pt) Altered Elimination No (0 pt) Score/Fall Risk Level 0 - 2 = Low Risk Oriented to surroundings, Maintained a safe environment, Assessed \T\ reinforced patient's understanding of fall precautions, Hourly rounding (assess needs \T\ fall precautionary measures) done. Abuse screen: Denies threats or abuse. Nutritional screening: No deficits noted. Tuberculosis screening: No symptoms or risk factors identified. Assessment: 19:54 General: Appears uncomfortable, Behavior is calm, cooperative, appropriate for age. cp4 Pain: Complains of pain in left leg and left phelps and left lateral ankle. Musculoskeletal: Reports pain in left leg and left phelps and left lateral ankle contusion to the left lower leg. Vital Signs: 19:11 BP 147 / 79; Pulse 95; Resp 18; Temp 97.4; Pulse Ox 100% ; Weight 83.91 kg; Height 6 cm10 ft. 0 in. ; Pain 6/10; 20:37 BP 141 / 79; Pulse 89; Resp 18; Pulse Ox 99% ; cp4 19:11 Body Mass Index 25.09 (83.91 kg, 182.88 cm) cm10 19:11 Pain Scale: Adult cm10 ED Course: 18:58 Patient arrived in ED. ra3 19:00 Mata Marshall PA is PHCP. cp 19:00 Mata Chavarria MD is Attending Physician. cp 19:08 Effie Abrams is Primary Nurse. cp4 19:11 Arm band placed on Patient placed in an exam room, on a stretcher. cm10 19:12 Triage completed. cm10 19:54 Bed in low position. Call light in reach. Side rails up X2. Provided Education on: leg cp4 pain. 19:54 No provider procedures requiring assistance completed. Patient did not have IV access cp4 during this emergency room visit. 20:14 XRAY Tib Fib LEFT In Process Unspecified. EDMS Administered Medications: 19:53 Drug: Ibuprofen PO 800 mg PO once Route: PO; cp4 20:39 Follow up: Response: No adverse reaction; Pain is decreased cp4 Medication: 19:54 VIS not applicable for this client. cp4 Outcome: 20:30 Discharge ordered by MD. cp 20:38 Discharged to home ambulatory, cp4 20:38 Condition: stable 20:38 Discharge instructions given to patient, Instructed on discharge instructions, follow up and referral plans. medication usage, Demonstrated understanding of instructions, follow-up care, medications, Prescriptions given X 20:38 Patient left the ED. cp4 Signatures: Dispatcher [employer] EDMS Mata Marshall PA PA cp Martinez, Clarissa, RN RN cm10 Effie Abrams cp4 Deborah Regan ra3
[2023-08-22 20:42] VITALS: TEMP 97.4
[2023-08-22 21:03] VITALS: BP 141/79; O2SAT 99
== END 2023-08-22 20:38 | disposition home or self-care (01) ==
LOC: ER 18:54
DX: S80.812A Abrasion, left lower leg, initial encounter (principal)
CPT/HCPCS: 99283

== ENCOUNTER 2024-01-13 07:06 | Emergency (ER) | payer SELFPAY ==
[2024-01-13 07:53] LABS: SARS-CoV-2 Antigen CONTROL BLUE LINE VIS/BG OK; SARS-CoV-2 Antigen Rapid Res Negative (Negative)
--- NOTE | 2024-01-13 08:18 | EDPHYS ---
Physician Documentation [facility] Name: Edu Whyte Age: 23 yrs Sex: Male : 2000 Arrival Date: 01/13/2024 Time: 07:06 Bed 7 Private MD: PHYLLIS Physician Mata Chavarria HPI: 01/12 08:09 This 23 yrs old Male presents to ER via Ambulatory with complaints of Flu elliot Symptoms. 08:09 The patient or guardian reports airway noise, cough, flu symptoms, arthralgias, elliot low-grade fever, myalgias. Modifying factors: The symptoms are alleviated by nothing. the symptoms are aggravated by nothing. Associated signs and symptoms: The patient has no apparent associated signs or symptoms. The patient has experienced similar episodes in the past, several times. Historical: - Allergies: 07:19 PENICILLINS; hb - Home Meds: :19 None [Active]; hb - PMHx: 07:19 Asthma; hb - PSHx: 07:19 None; hb - Immunization history:: Adult Immunizations up to date. - Infectious Disease History:: Denies. - Social history:: Smoking status: Patient denies any tobacco usage or history of. ROS: 08:10 Constitutional: Negative for fever, chills, and weight loss, Eyes: Negative for injury, elliot pain, redness, and discharge, ENT: Negative for injury, pain, and discharge, Neck: Negative for injury, pain, and swelling, Cardiovascular: Negative for chest pain, palpitations, and edema, Abdomen/GI: Negative for abdominal pain, nausea, vomiting, diarrhea, and constipation, Back: Negative for injury and pain, : Negative for injury, bleeding, discharge, and swelling, MS/Extremity: Negative for injury and deformity, Skin: Negative for injury, rash, and discoloration, Neuro: Negative for headache, weakness, numbness, tingling, and seizure, Psych: Negative for depression, anxiety, suicide ideation, homicidal ideation, and hallucinations, Allergy/Immunology: Negative for hives, rash, and allergies, Endocrine: Negative for neck swelling, polydipsia, polyuria, polyphagia, and marked weight changes, Hematologic/Lymphatic: Negative for swollen nodes, abnormal bleeding, and unusual bruising, 08:10 Respiratory: Positive for cough, with no reported sputum, Exam: 08:10 Constitutional: This is a well developed, well nourished patient who is awake, alert, elliot and in no acute distress. Head/Face: Normocephalic, atraumatic. Eyes: Pupils equal round and reactive to light, extra-ocular motions intact. Lids and lashes normal. Conjunctiva and sclera are non-icteric and not injected. Cornea within normal limits. Periorbital areas with no swelling, redness, or edema. ENT: Nares patent. No nasal discharge, no septal abnormalities noted. Tympanic membranes are normal and external auditory canals are clear. Oropharynx with no redness, swelling, or masses, exudates, or evidence of obstruction, uvula midline. Mucous membranes moist. Neck: Trachea midline, no thyromegaly or masses palpated, and no cervical lymphadenopathy. Supple, full range of motion without nuchal rigidity, or vertebral point tenderness. No Meningismus. Chest/axilla: Normal chest wall appearance and motion. Nontender with no deformity. No lesions are appreciated. Cardiovascular: Regular rate and rhythm with a normal S1 and S2. No gallops, murmurs, or rubs. Normal PMI, no JVD. No pulse deficits. Respiratory: Lungs have equal breath sounds bilaterally, clear to auscultation and percussion. No rales, rhonchi or wheezes noted. No increased work of breathing, no retractions or nasal flaring. Abdomen/GI: Soft, non-tender, with normal bowel sounds. No distension or tympany. No guarding or rebound. No evidence of tenderness throughout. Back: No spinal tenderness. No costovertebral tenderness. Full range of motion. Male : Normal genitalia with no discharge or lesions. Skin: Warm, dry with normal turgor. Normal color with no rashes, no lesions, and no evidence of cellulitis. MS/ Extremity: Pulses equal, no cyanosis. Neurovascular intact. Full, normal range of motion. Neuro: Awake and alert, GCS 15, oriented to person, place, time, and situation. Cranial nerves II-XII grossly intact. Motor strength 5/5 in all extremities. Sensory grossly intact. Cerebellar exam normal. Normal gait. Psych: Awake, alert, with orientation to person, place and time. Behavior, mood, and affect are within normal limits. 08:10 Musculoskeletal/extremity: DVT Exam: No signs of deep vein thrombosis. no pain, no swelling, no tenderness, negative Homans' sign noted on exam, no appreciated bluish discoloration, no erythema, no increased warmth, Vital Signs: 07:17 BP 146 / 83; Pulse 88; Resp 16; Temp 98.5(O); Pulse Ox 99% on R/A; Weight 81.65 kg; hb Height 6 ft. 0 in. ; Pain 3/10; 08:34 BP 122 / 67; Pulse 87; Resp 16; Temp 98.5; Pulse Ox 99% ; bp 07:17 Body Mass Index 24.41 (81.65 kg, 182.88 cm) hb 07:17 Pain Scale: Adult hb MDM: 07:11 Medical Screening Exam initiated elliot 08:15 Differential diagnosis: obstructed airway, tracheal injury, bronchitis, flu, URI. elliot Antibiotic administration: The patient is discharged and will get outpatient antibiotics, Zithromax. Differential Diagnosis: Bronchitis Influenza Upper Respiratory Infection Sinusitis Pharyngitis Viral Syndrome Pneumonia. Data reviewed: vital signs, nurses notes, lab test result(s). Consideration of Admission/Observation Escalation of care including admission/observation considered. I considered the following discharge prescriptions or medication management in the emergency department Medications were administered in the Emergency Department. See MAR. Test considered but Not performed: X-ray: NO CXR. Historians other than the Patient: PT WELL INFORMED. 01/12 07:14 Order name: Flu [facility] 01/12 07:14 Order name: SARS RAPID; Complete Time: 08:16 [facility] 01/12 07:14 Order name: Strep; Complete Time: 08:16 [facility] 01/12 07:56 Order name: Throat Culture EDMS Administered Medications: 08:10 Drug: AZITHromycin PO 500 mg PO once Route: PO; bp 08:34 Follow up: Response: No adverse reaction bp Disposition Summary: 01/13/24 08:17 Discharge Ordered Notes: Location: Home [facility] Problem: new elliot Symptoms: have improved elliot Condition: Stable elliot Diagnosis - Acute upper respiratory infection, unspecified elliot - Cough elliot Followup: elliot - With: Private Physician - When: 2 - 3 days - Reason: Recheck today's complaints, Continuance of care, Re-evaluation by your physician Discharge Instructions: - Upper Respiratory Infection, Adult elliot - Cool Mist Vaporizer elliot - Upper Respiratory Infection, Adult, [id number] elliot - Cough, Adult, Goba-tl-Ivge elliot - Viral Respiratory Infection, Mxqh-Wr-Aerf elliot - Cough, Adult [facility] - Discharge Summary Sheet hb Forms: - Medication Reconciliation Form elliot - Antibiotic Education elliot - Prescription Opioid Use [facility] - Patient Portal Instructions [facility] - Leadership Thank You Letter [facility] - Work release form Prescriptions: - Tahmina-D 12 Hour 60-120 mg Oral Tablet Sustained Release 12 hr - take 1 tablet ORAL route every 12 hours As needed; 20 tablet; Refills: 0, [facility] Product Selection Permitted - Tessalon Perles 100 mg Oral capsule - take 2 capsule ORAL route every 8 hours As needed; 30 capsule; Refills: 0, [facility] Product Selection Permitted - Zithromax Z-Morales 250 mg Oral tablet - take 1 tablet ORAL route as directed for 5 days Day 1 - take two (2) tablets elliot one time. Day 2, 3, 4 , 5 take one (1) tablet once daily.; 6 tablet; Refills: 0, Product Selection Permitted Signatures: Dispatcher [employer] EDMS Mata Chavarria MD MD cha Baxter, Heather, RN RN Guy Peacock, RN RN bp Corrections: (The following items were deleted from the chart) 07:14 07:14 Influenza Screen (A \T\ B)+BA.LAB.BRZ ordered. EDMS EDMS 07:14 07:14 SARS-COV-2 Antigen Rapid+I.LAB.BRZ ordered. EDMS EDMS 07:14 07:14 Group A Streptococcus Rapid Sc+BA.LAB.BRZ ordered. EDMS EDMS
--- NOTE | 2024-01-13 08:18 | ER ---
Nurse's Notes [facility] Name: Edu Whyte Age: 23 yrs Sex: Male : 2000 Arrival Date: 01/13/2024 Time: 07:06 Bed 7 Private MD: Diagnosis: Acute upper respiratory infection, unspecified;Cough Presentation: 01/12 07:17 Chief complaint: Body aches, headache, chills, cough, and nausea x 2-3 days, vomiting hb this morning. Coronavirus screen: Client presents with at least one sign or symptom that may indicate coronavirus-19. Provider contacted for isolation considerations. Ebola Screen: No symptoms or risks identified at this time. Initial Sepsis Screen: Does the patient meet any 2 criteria? No. Patient's initial sepsis screen is negative. Does the patient have a suspected source of infection? No. Patient's initial sepsis screen is negative. Risk Assessment: Do you want to hurt yourself or someone else? Patient reports no desire to harm self or others. Onset of symptoms was January 10, 2024. 07:17 Method Of Arrival: Ambulatory hb 07:17 Acuity: TERENCE 4 hb Triage Assessment: 07:19 General: Appears in no apparent distress. Behavior is calm, cooperative. Pain: Pain hb currently is 3 out of 10 on a pain scale. Neuro: GC15. Cardiovascular: Patient's skin is warm and dry. Respiratory: Reports cough that is Respiratory effort is even, unlabored, Respiratory pattern is regular, symmetrical. Historical: - Allergies: 07:19 PENICILLINS; hb - Home Meds: 07:19 None [Active]; hb - PMHx: 07:19 Asthma; hb - PSHx: 07:19 None; hb - Immunization history:: Adult Immunizations up to date. - Infectious Disease History:: Denies. - Social history:: Smoking status: Patient denies any tobacco usage or history of. Screenin:[address] [facility] ED Fall Risk Assessment (Adult) History of falling in the last 3 months, hb including since admission No falls in past 3 months (0 pts) Confusion or Disorientation No (0 pts) Intoxicated or Sedated No (0 pts) Impaired Gait No (0 pts) Mobility Assist Device Used No (0 pt) Altered Elimination No (0 pt) Score/Fall Risk Level 0 - 2 = Low Risk Oriented to surroundings, Maintained a safe environment, Educated pt \T\ family on fall prevention, incl call for assistance when getting out of bed. Abuse screen: Denies threats or abuse. Denies injuries from another. Nutritional screening: No deficits noted. Tuberculosis screening: No symptoms or risk factors identified. Assessment: 07:19 General: See triage assessment . hb Vital Signs: 07:17 BP 146 / 83; Pulse 88; Resp 16; Temp 98.5(O); Pulse Ox 99% on R/A; Weight 81.65 kg; hb Height 6 ft. 0 in. ; Pain 3/10; 08:34 BP 122 / 67; Pulse 87; Resp 16; Temp 98.5; Pulse Ox 99% ; bp 07:17 Body Mass Index 24.41 (81.65 kg, 182.88 cm) hb 07:17 Pain Scale: Adult hb ED Course: 07:09 Patient arrived in ED. im 07:11 Mata Chavarria MD is Attending Physician. elliot 07:13 Guy Peacock, RN is Primary Nurse. bp 07:19 Triage completed. hb 07:19 Arm band placed on. hb 07:19 Patient has correct armband on for positive identification. Bed in low position. Call hb light in reach. Provided Education on: tests, result times. 07:19 No provider procedures requiring assistance completed. Patient did not have IV access hb during this emergency room visit. 07:25 COVID swab sent to lab. Flu and/or RSV swab sent to lab. Strep swab sent to lab. bp Administered Medications: 08:10 Drug: AZITHromycin PO 500 mg PO once Route: PO; bp 08:34 Follow up: Response: No adverse reaction bp Medication: 07:19 VIS not applicable for this client. hb Outcome: 08:17 Discharge ordered by . elliot 08:34 Discharged to home ambulatory, bp 08:34 Condition: stable 08:34 Discharge instructions given to patient, Instructed on discharge instructions, follow up and referral plans. medication usage, Demonstrated understanding of instructions, follow-up care, medications, Prescriptions given X 3, 08:35 Patient left the ED. bp Signatures: Mata Chavarria MD MD cha Baxter, Heather, RN RN Guy Marie, RN RN bp Emma Araujo im
[2024-01-13] MEDS ORDERED: AZITHROMYCIN 250 MG TAB ONE (08:24)
[2024-01-13 13:34] VITALS: TEMP 98.5; O2SAT 99
[2024-01-13 13:35] VITALS: BP 122/67
== END 2024-01-13 08:35 | disposition home or self-care (01) ==
LOC: ER 07:06
DX: J06.9 Acute upper respiratory infection, unspecified (principal); Z11.52 Encounter for screening for COVID-19
CPT/HCPCS: 36415; 87070; 87081; 87804; 87811

== ENCOUNTER 2024-04-13 08:49 | Emergency (ER) | payer SELFPAY ==
[2024-04-13 09:29] LABS: Absolute Basophils 0.1 K/uL (0-0.5); Absolute Eosinophils 0.9 K/uL (0-0.5); Absolute Lymphocytes (CBC) 2.5 K/uL (0.7-4.9); Absolute Monocytes 0.8 K/uL (0.1-1.3); Absolute Neutrophil 6.3 K/uL (1.8-8.0); Basophils % 0.9 % (0-1.3); Eosinophils % 8.9 % (0-4.4); Hematocrit 43.5 % (39.6-49.0); Hemoglobin 15.5 g/dL (13.6-17.9); Lymphocytes % 23.2 % (15.3-44.8); MCH 30.4 pg (27.0-35.0); MCHC 35.7 g/dL (32.0-36.0); MPV 8.1 fL (7.6-11.3); Monocytes % 7.8 % (3.3-12.3); Neutrophils % 59.2 % (41.7-73.7); Platelets 267 thou/uL (152-406); RBC Red Blood Cell Count 5.12 M/uL (4.33-5.43); Red Cell Distribution Width 13.3 % (12.1-15.2)
[2024-04-13] MEDS ORDERED: KETOROLAC 30 MG/ML INJ ONE (09:37)
[2024-04-13] MEDS ORDERED: ONDANSETRON 4 MG/2 ML VIAL ONE (09:37)
[2024-04-13] MEDS ORDERED: NA CHLORIDE 0.9% 500 ML ONE (09:37)
[2024-04-13 09:44] LABS: Anion Gap 6.6 mEq/L (5.0-15.0); Potassium 4.6 mEq/L (3.5-5.1)
[2024-04-13 09:49] LABS: SARS-CoV-2 Antigen CONTROL BLUE LINE VIS/BG OK; SARS-CoV-2 Antigen Rapid Res Negative (Negative)
--- NOTE | 2024-04-13 10:28 | RAD REPORT ---
Procedure: Chest Single View HISTORY: Cough COMPARISON: 2023 FINDINGS: The lungs appear clear of acute infiltrate. No significant pleural effusion noted. The heart is normal size. IMPRESSION: No acute abnormality is displayed.
--- NOTE | 2024-04-13 10:45 | ER ---
Nurse's Notes [facility] Name: Edu Whyte Age: 23 yrs Sex: Male : 2000 Arrival Date: 04/13/2024 Time: 08:49 Bed 5 Private MD: Diagnosis: Viral infection, unspecified Presentation: 04/13 09:01 Chief complaint: Patient states: DONIS, abdominal cramping, nausea, diarrhea for 5 days. ll1 Painful cough has set in now. Coronavirus screen: Client denies travel out of the [place] in the last 14 days. cough unrelated to allergies, diarrhea, fatigue, headache, muscle pain, nausea, Client presents with at least one sign or symptom that may indicate coronavirus-19. Standard/surgical mask placed on the client. Ebola Screen: Patient denies travel to an Ebola-affected area in the 21 days before illness onset. Initial Sepsis Screen: Does the patient meet any 2 criteria? No. Patient's initial sepsis screen is negative. Does the patient have a suspected source of infection? No. Patient's initial sepsis screen is negative. Risk Assessment: Do you want to hurt yourself or someone else? Patient reports no desire to harm self or others. Onset of symptoms was April 09, 2024. 09:01 Method Of Arrival: Ambulatory ll1 09:01 Acuity: TERENCE 4 ll1 Triage Assessment: 09:00 General: Appears in no apparent distress. Behavior is calm, cooperative, appropriate bp for age. Pain: Complains of pain in head. EENT: No deficits noted. Neuro: No deficits noted. Cardiovascular: No deficits noted. Respiratory: No deficits noted. GI: No signs and/or symptoms were reported involving the gastrointestinal system. : No signs and/or symptoms were reported regarding the genitourinary system. Derm: No deficits noted. Musculoskeletal: No deficits noted. Historical: - Allergies: 08:58 PENICILLINS; ll1 - Home Meds: 08:58 None [Active]; ll1 - PMHx: 08:58 Asthma; ll1 - PSHx: 08:58 None; ll1 - Immunization history:: Adult Immunizations up to date. - Social history:: Smoking status: Patient denies any tobacco usage or history of. Screenin:[address] [facility] ED Fall Risk Assessment (Adult) History of falling in the last 3 months, bp including since admission No falls in past 3 months (0 pts) Confusion or Disorientation No (0 pts) Intoxicated or Sedated No (0 pts) Impaired Gait No (0 pts) Mobility Assist Device Used No (0 pt) Altered Elimination No (0 pt) Score/Fall Risk Level 0 - 2 = Low Risk Oriented to surroundings. Abuse screen: Denies threats or abuse. Denies injuries from another. Nutritional screening: No deficits noted. Tuberculosis screening: No symptoms or risk factors identified. Assessment: 09:00 General: Appears in no apparent distress. comfortable, ill, Behavior is calm, bp cooperative, appropriate for age. Vital Signs: 09:01 BP 151 / 87; Pulse 93; Resp 17; Temp 98.4; Pulse Ox 99% on R/A; Weight 86.18 kg; Height ll1 6 ft. 0 in. ; Pain 4/10; 09:01 Body Mass Index 25.77 (86.18 kg, 182.88 cm) ll1 09:01 Pain Scale: Adult [facility] ED Course: 08:52 Patient arrived in ED. mr 08:53 Buzz Burns MD is Attending Physician. ll1 08:53 Guy Peacock, FITO is Primary Nurse. bp 08:58 Arm band placed on Patient placed in an exam room, on a stretcher. ll1 09:00 Patient has correct armband on for positive identification. bp 09:03 Triage completed. ll1 09:14 Influenza Screen (a \T\ B) Sent. ll1 09:14 SARS RAPID Sent. ll1 09:20 Inserted saline lock: 22 gauge in right antecubital area, using aseptic technique. ll1 Blood collected. Flushed with 10 mL NS. 09:21 CBC with Diff Sent. ll1 09:21 BMP Sent. ll1 10:20 CXR XRAY In Process Unspecified. EDMS 11:12 No provider procedures requiring assistance completed. IV discontinued, intact, bp bleeding controlled, No redness/swelling at site. Pressure dressing applied. Administered Medications: 09:51 Drug: Ketorolac IVP 15 mg IVP once Route: IVP; Site: right antecubital; bp 11:13 Follow up: Response: No adverse reaction bp 09:52 Drug: NS 0.9% IV 500 ml 500 ml IV at 1 bolus once; to be given as a bolus over 30 bp minutes Volume: 500 ml; Route: IV; Rate: 1 bolus; Site: right antecubital; 11:13 Follow up: IV Status: Completed infusion bp 09:52 Drug: Ondansetron IVP 4 mg IVP once; over 2 minutes Route: IVP; Site: right antecubital;bp 11:13 Follow up: Response: No adverse reaction bp Outcome: 10:44 Discharge ordered by . ec2 11:12 Discharged to home ambulatory, bp 11:12 Condition: stable 11:12 Discharge instructions given to patient, Instructed on discharge instructions, follow up and referral plans. medication usage, Demonstrated understanding of instructions, follow-up care, medications, Prescriptions given X 2, 11:13 Patient left the ED. bp Signatures: Dispatcher [employer] Ally Delgado, Guy Ruff, RN RN Mario Feng RN RN ll1 Buzz Burns MD MD ec2
--- NOTE | 2024-04-13 10:45 | EDPHYS ---
Physician Documentation [facility] Name: Edu Whyte Age: 23 yrs Sex: Male : 2000 Arrival Date: 04/13/2024 Time: 08:49 Bed 5 Private MD: ED Physician Buzz Burns HPI: 04/13 09:17 This 23 yrs old Male presents to ER via Ambulatory with complaints of Flu ec2 Symptoms. 09:17 Patient arrives today for evaluation of upper respiratory symptoms. Patient did have a ec2 cough and congestion as well as headache and nausea and decreased p.o. intake and fatigue. Patient reports multiple sick contacts with the same symptoms.. Historical: - Allergies: 08:58 PENICILLINS; ll1 - Home Meds: 08:58 None [Active]; ll1 - PMHx: 08:58 Asthma; ll1 - PSHx: 08:58 None; ll1 - Immunization history:: Adult Immunizations up to date. - Social history:: Smoking status: Patient denies any tobacco usage or history of. ROS: 09:17 Constitutional: as per hpi ec2 Exam: 09:17 Constitutional: GEN: NAD Head: atraumatic Eyes: EOMI Ears: External ears are ec2 normal. CV: regular rate LUNGS: no respiratory distress, no wheezes or rales or rhonchi ABD: non-distended SKIN: no evidence of rashes MSK: no evidence of trauma Vital Signs: 09:01 BP 151 / 87; Pulse 93; Resp 17; Temp 98.4; Pulse Ox 99% on R/A; Weight 86.18 kg; Height ll1 6 ft. 0 in. ; Pain 4/10; 09:01 Body Mass Index 25.77 (86.18 kg, 182.88 cm) ll1 09:01 Pain Scale: Adult ll1 MDM: 09:00 Medical Screening Exam initiated ec2 09:17 Data reviewed: vital signs, nurses notes. ED course: Patient arrives today for upper ec2 respiratory symptoms. Examination is revealing for well-appearing nontoxic individual with reassuring cardiopulmonary lamination. Will obtain viral swab, lab work and treat the patient for his symptoms. Suspect viral infection. Doubt pneumonia given no focal lung sounds.. 09:26 ED course: ABG obtained, shows acidosis with a pH of 7.32.. ec2 04/13 09:00 Order name: CBC with Diff; Complete Time: 10:05 ec2 04/13 09:00 Order name: BMP; Complete Time: 10:05 ec2 04/13 09:00 Order name: Influenza Screen (a \T\ B); Complete Time: 10:05 ec2 04/13 09:00 Order name: SARS RAPID; Complete Time: 10:05 ec2 04/13 10:05 Order name: CXR XRAY; Complete Time: 10:39 ec2 04/13 09:00 Order name: IV; Complete Time: 09:21 ec2 Administered Medications: 09:51 Drug: Ketorolac IVP 15 mg IVP once Route: IVP; Site: right antecubital; bp 11:13 Follow up: Response: No adverse reaction bp 09:52 Drug: NS 0.9% IV 500 ml 500 ml IV at 1 bolus once; to be given as a bolus over 30 bp minutes Volume: 500 ml; Route: IV; Rate: 1 bolus; Site: right antecubital; 11:13 Follow up: IV Status: Completed infusion bp 09:52 Drug: Ondansetron IVP 4 mg IVP once; over 2 minutes Route: IVP; Site: right antecubital;bp 11:13 Follow up: Response: No adverse reaction bp Disposition Summary: 04/13/24 10:44 Discharge Ordered Notes: Location: Home ec2 Condition: Stable ec2 Diagnosis - Viral infection, unspecified ec2 Followup: ec2 - With: Private Physician - When: - Reason: Re-evaluation by your physician Discharge Instructions: - Discharge Summary Sheet ec2 - Viral Illness, Adult ec2 Forms: - Work release form ec2 - Medication Reconciliation Form ec2 - Antibiotic Education ec2 - Prescription Opioid Use ec2 - Patient Portal Instructions ec2 - Leadership Thank You Letter ec2 Prescriptions: - Compazine 10 mg Oral Tablet - take 1 tablet ORAL route every 8 hours As needed; 20 tablet; Refills: 0, ec2 Product Selection Permitted - Tessalon Perles 100 mg Oral Capsule - take 1 capsule ORAL route every 8 hours As needed; 15 capsule; Refills: 0, ec2 Product Selection Permitted Signatures: Dispatcher [employer] Guy Adorno RN RN bp Mario Sousa RN RN [facility] Burns, Buzz, MD MD ec2
[2024-04-13 11:53] VITALS: BP 151/87; TEMP 98.4; O2SAT 99
== END 2024-04-13 11:13 | disposition home or self-care (01) ==
LOC: ER 08:49
DX: B34.9 Viral infection, unspecified (principal); Z11.52 Encounter for screening for COVID-19
CPT/HCPCS: 36415; 71045; 80048; 85025; 87804; 87811; 96361; 96374; 96375; 99284; J2405; J7040

== ENCOUNTER 2024-05-15 13:11 | Emergency (ER) | payer SELFPAY ==
[2024-05-15 14:30] LABS: Influenza A Ag Positive; Influenza B Ag Negative; SARS-CoV-2 Antigen Rapid Res Negative (Negative)
--- NOTE | 2024-05-15 14:33 | ER ---
Nurse's Notes [facility] Name: Edu Whyte Age: 23 yrs Sex: Male : 2000 Arrival Date: 05/15/2024 Time: 13:11 Bed 10 Private MD: Diagnosis: Influenza due to identified novel influenza A virus;Streptococcal pharyngitis Presentation: 05/15 13:19 Chief complaint: Patient states: headache, body aches, congestion , a lot of people at work are sick. Coronavirus screen: At this time, the client does not indicate any symptoms associated with coronavirus-19. Ebola Screen: No symptoms or risks identified at this time. Initial Sepsis Screen: Does the patient meet any 2 criteria? No. Patient's initial sepsis screen is negative. Does the patient have a suspected source of infection? No. Patient's initial sepsis screen is negative. Risk Assessment: Do you want to hurt yourself or someone else? Patient reports no desire to harm self or others. Onset of symptoms was May 13, 2024. 13:19 Method Of Arrival: Ambulatory iw 13:19 Acuity: TERENCE 4 iw Historical: - Allergies: 13:21 PENICILLINS; iw - Home Meds: 13:21 None [Active]; iw - PMHx: 13:21 Asthma; iw - PSHx: 13:22 None; iw - Immunization history:: Adult Immunizations not up to date. - Infectious Disease History:: Denies. - Social history:: Smoking status: Patient denies any tobacco usage or history of. Screenin:02 [facility] ED Fall Risk Assessment (Adult) History of falling in the last 3 months, ph including since admission No falls in past 3 months (0 pts) Confusion or Disorientation No (0 pts) Intoxicated or Sedated No (0 pts) Impaired Gait No (0 pts) Mobility Assist Device Used No (0 pt) Altered Elimination No (0 pt) Score/Fall Risk Level 0 - 2 = Low Risk Oriented to surroundings, Maintained a safe environment, Hourly rounding (assess needs \T\ fall precautionary measures) done. Abuse screen: Denies threats or abuse. Denies injuries from another. Nutritional screening: No deficits noted. Tuberculosis screening: No symptoms or risk factors identified. Vital Signs: 13:19 BP 124 / 77; Pulse 101; Resp 18; Temp 98.2(O); Pulse Ox 99% on R/A; Weight 90.72 kg; iw Height 6 ft. 0 in. ; Pain 5/10; 13:19 Body Mass Index 27.13 (90.72 kg, 182.88 cm) iw 13:19 Pain Scale: Adult ED Course: 13:15 Patient arrived in ED. im 13:17 Peyton Trotter FNP-C is [facility]. kb 13:17 Mata Chavarria MD is Attending Physician. kb 13:21 Triage completed. iw 13:24 Marylou Merlos, RN is Primary Nurse. ph 14:01 Strep Sent. ph 14:01 Flu Sent. ph 14:01 SARS-COV-2 Antigen Rapid Sent. ph 14:01 Arm band placed on Patient placed in an exam room, on a stretcher. ph 14:03 Patient has correct armband on for positive identification. Bed in low position. Call ph light in reach. Side rails up X 1. Pulse ox on. NIBP on. 14:45 No provider procedures requiring assistance completed. Patient did not have IV access ph during this emergency room visit. Administered Medications: No medications were administered Medication: 14:03 VIS not applicable for this client. ph Outcome: 14:33 Discharge ordered by MD. kb 14:45 Discharged to home ambulatory, ph 14:45 Condition: good 14:45 Discharge instructions given to patient, Instructed on discharge instructions, follow up and referral plans. medication usage, Demonstrated understanding of instructions, follow-up care, medications, Prescriptions given X 1, 14:45 Patient left the ED. ph Signatures: Peyton Trotter FNP-C FNP-Ckb Williams, Irene, RN RN Marylou Merlos, RN RN Emma Araujo im Corrections: (The following items were deleted from the chart) 13:21 13:19 Pulse 101bpm; Resp 18bpm; Pulse Ox 99% RA; Temp 98.2F Oral; 90.72 kg; Height 6 iw ft. 0 in.; BMI: 27.1; Pain 5/10, Adult; iw
--- NOTE | 2024-05-15 14:33 | EDPHYS ---
Physician Documentation [facility] Name: Edu Whyte Age: 23 yrs Sex: Male : 2000 Arrival Date: 05/15/2024 Time: 13:11 Bed 10 Private MD: ED Physician Mata Chavarria HPI: 05/15 13:39 This 23 yrs old Male presents to ER via Ambulatory with complaints of Flu Symptoms. kb 13:40 Pt is a 23 year old male who presents for cough, congestion, bodyaches, and headache kb that started 3 days ago. States he has been exposed to several sick people at work. . Historical: - Allergies: 13:21 PENICILLINS; iw - Home Meds: 13:21 None [Active]; iw - PMHx: 13:21 Asthma; iw - PSHx: 13:22 None; iw - Immunization history:: Adult Immunizations not up to date. - Infectious Disease History:: Denies. - Social history:: Smoking status: Patient denies any tobacco usage or history of. ROS: 13:39 Constitutional: As per HPI kb Exam: 13:39 Constitutional: This is a well developed, well nourished patient who is awake, alert, kb and in no acute distress. Head/Face: Normocephalic, atraumatic. ENT: Moist Mucous membranes Cardiovascular: Regular rate Respiratory: Respirations even and unlabored. No increased work of breathing. Talking in full sentences Skin: Warm, dry with normal turgor. Normal color. MS/ Extremity: Pulses equal, no cyanosis. Neurovascular intact. Full, normal range of motion. Neuro: Awake and alert, GCS 15, oriented to person, place, time, and situation. Vital Signs: 13:19 BP 124 / 77; Pulse 101; Resp 18; Temp 98.2(O); Pulse Ox 99% on R/A; Weight 90.72 kg; iw Height 6 ft. 0 in. ; Pain 5/10; 13:19 Body Mass Index 27.13 (90.72 kg, 182.88 cm) iw 13:19 Pain Scale: Adult iw MDM: 13:17 Medical Screening Exam initiated kb 14:31 Differential diagnosis: flu, covid, uri, strep. Data reviewed: vital signs, nurses kb notes. Counseling: I had a detailed discussion with the patient and/or guardian regarding the historical points, exam findings, and any diagnostic results supporting the discharge/admit diagnosis, lab results, the need for outpatient follow up, a family practitioner, to return to the emergency department if symptoms worsen or persist or if there are any questions or concerns that arise at home. 05/15 13:39 Order name: SARS-COV-2 Antigen Rapid ph 05/15 13:39 Order name: Strep ph 05/15 14:09 Order name: COVID-19 Ag + Flu A+B Ag; Complete Time: 14:31 EDMS 05/15 14:09 Order name: Group A Streptococcus Rapid Sc; Complete Time: 14:26 EDMS Administered Medications: No medications were administered Disposition: 05/16 12:38 Co-signature as Attending Physician, Mata Chavarria MD I agree with the assessment and elliot plan of care. Disposition Summary: 05/15/24 14:33 Discharge Ordered Notes: Location: Home kb Condition: Stable kb Diagnosis - Influenza due to identified novel influenza A virus kb - Streptococcal pharyngitis kb Followup: kb - With: Emergency Department - When: As needed - Reason: Worsening of condition Followup: kb - With: Private Physician - When: 2 - 3 days - Reason: Recheck today's complaints, Continuance of care, Re-evaluation by your physician Discharge Instructions: - Discharge Summary Sheet kb - Influenza, Adult, [id number] kb - Strep Throat, Pediatric, [id number] kb Forms: - Medication Reconciliation Form kb - Antibiotic Education kb - Prescription Opioid Use kb - Patient Portal Instructions kb - Leadership Thank You Letter kb - Work release form ph Prescriptions: - Zithromax 500 mg Oral Tablet - take 1 tablet ORAL route once daily for 5 days; 5 tablet; Refills: 0, Product kb Selection Permitted Signatures: Dispatcher [employer] EDMS Peyton Trotter, [employer] SUPERVISOR-C QUINTEN-Mata Foster MD MD cha Williams, Irene, RN RN iw Corrections: (The following items were deleted from the chart) 05/15 13:24 13:24 Influenza Screen (A \T\ B)+BA.LAB.BRZ ordered. EDMS EDMS 13:24 13:24 Group A Streptococcus Rapid Sc+BA.LAB.BRZ ordered. EDMS EDMS 13:24 13:24 SARS-COV-2 Antigen Rapid+I.LAB.BRZ ordered. EDMS EDMS 14:09 14:06 Group A Streptococcus Rapid Sc ordered. EDMS EDMS
[2024-05-15 14:56] VITALS: BP 124/77; TEMP 98.2; O2SAT 99
== END 2024-05-15 14:45 | disposition home or self-care (01) ==
LOC: ER 13:11
DX: J10.1 Influenza due to other identified influenza virus with other respiratory manifestations (principal); J02.0 Streptococcal pharyngitis; Z11.52 Encounter for screening for COVID-19
CPT/HCPCS: 36415; 87428; 99283